=== PATIENT | male | born 1965 | race Caucasian/White ===

== ENCOUNTER 2018-04-11 13:40 | Outpatient (CLI) | payer BC | END 2018-04-11 13:42 | LOC: LAB 13:40 | PROVIDERS: ATTEND Family Medicine | DX: R73.9 Hyperglycemia, unspecified (principal) | CPT/HCPCS: 83036 ==

== ENCOUNTER 2018-08-26 13:07 | Outpatient (CLI) | payer BC, OTHER | END 2018-08-26 13:10 | LOC: LAB 13:07 | PROVIDERS: ATTEND Family Medicine | DX: E11.9 Type 2 diabetes mellitus without complications (principal) | CPT/HCPCS: 36415; 83036 ==

== ENCOUNTER 2019-06-03 16:10 | Outpatient (CLI) | payer BC ==
[2019-06-03 16:43] LABS: HDL 31 mg/dL (>40); eGFR (Non-African) > 60
[2019-06-03 16:51] LABS: A1C 7.4 % (<5.7)
== END 2019-06-03 16:15 ==
LOC: LAB 16:10
PROVIDERS: ATTEND Family Medicine
DX: Z13.220 Encounter for screening for lipoid disorders (principal); E11.9 Type 2 diabetes mellitus without complications
CPT/HCPCS: 36415; 80053; 80061; 83036